=== PATIENT | female | born 2000 | race Caucasian/White ===

== ENCOUNTER 2024-03-06 06:49 | Day surgery (SDC) | payer MEDICAID, OTHER ==
[2024-03-06] MEDS ORDERED: hydrALAZINE 20 MG/ML VIAL SLOW IVP PRN (06:51)
[2024-03-06] MEDS ORDERED: Ondansetron PF 4 MG/2 ML Vial IVP PRN (06:51)
[2024-03-06] MEDS ORDERED: Famotidine/PF 20 mg/2ml Vial SLOW IVP PRN (06:51)
[2024-03-06] MEDS ORDERED: Bicitra 30 ML UDCUP PO PRN (06:51)
[2024-03-06] MEDS ORDERED: Promethazine HCl 25 MG/ML VIAL IM PRN (06:51)
[2024-03-06] MEDS ORDERED: Oxytocin 30 units/NS 500 ML 500 ML IV SCH (07:00)
[2024-03-06 07:32] VITALS: BMI 34.7
[2024-03-06] MEDS ORDERED: Terbutaline Sulfate 1 MG/ML VIAL SC SCH (07:40)
[2024-03-06] MEDS: Lactated Ringer's 1,000 ML IV SCH (07:55)
[2024-03-06] MEDS: Acetaminophen 500 MG TAB PO SCH (08:11)
== END 2024-03-06 09:55 | disposition home health service (06) ==
LOC: CSHSDC 06:49 → CSHLD 06:49 → UNDOADMOB 06:49 → INTOOBSV 06:51 → OBSVTOIN 06:51 → EDSTATUS 07:30 → UNDODISOB 09:55 → CSHSDC 09:55 → UNDODISIN 09:55
PROVIDERS: ATTEND Family Medicine
PROC: 10S0XZZ Reposition Products of Conception, External Approach (ICD-10-PCS; principal; 2024-03-06)
PROC: 10E0XZZ Delivery of Products of Conception, External Approach (ICD-10-PCS; principal; 2024-03-06)
DX: O32.1XX0 Maternal care for breech presentation, not applicable or unspecified (principal); Z79.899 Other long term (current) drug therapy; Z79.82 Long term (current) use of aspirin; Z3A.37 37 weeks gestation of pregnancy
CPT/HCPCS: 59412; 76815; 96360; J7120

== ENCOUNTER 2024-03-26 14:58 | Inpatient (IN) | payer OTHER ==
[2024-03-25 14:19] LABS: Hemoglobin 12.8 g/dL (12.0-15.5); Platelet Count 151 10x3/uL (150-450)
[2024-03-25 14:53] LABS: Syphilis Antibody Nonreactive (Nonreactive); Syphilis Antibody Index 0.06 S/CO (<1.00 Non-Reactive)
[2024-03-25 14:56] LABS: HBsAg Index 0.27 S/CO (0-0.99); HIV (1/2) Antibody/Antigen Non-Reactive (NonReactive); HIV 1/2 INDEX 0.15 S/CO (<1.00); Hep B Surf Ag Non-Reactive S/CO (NonReactive)
[2024-03-26] MEDS ORDERED: Bicitra 30 ML UDCUP PO PRN (15:36)
[2024-03-26] MEDS ORDERED: Methylergonovine 0.2 MG/ML VIAL IM PRN (15:36)
[2024-03-26] MEDS ORDERED: Tranexamic Acid 1,000 MG/10 ML VIAL IVP PRN (15:36)
[2024-03-26] MEDS ORDERED: Misoprostol 200 MCG TAB PR PRN (15:36)
[2024-03-26] MEDS ORDERED: Clindamycin/D5W 900 MG in Premix 1 BAG IVPB SCH (15:36)
[2024-03-26] MEDS ORDERED: Ondansetron PF 4 MG/2 ML Vial IVP PRN ×4 (15:36→21:17)
[2024-03-26] MEDS ORDERED: Carboprost 250 MCG/ML AMP IM PRN (15:36)
[2024-03-26] MEDS ORDERED: Diphenoxylate HCl/Atropine Tablet PO PRN (15:36)
[2024-03-26] MEDS ORDERED: Promethazine HCl 25 MG/ML VIAL IM PRN ×3 (15:36→21:17)
[2024-03-26] MEDS ORDERED: Lactated Ringer's 1,000 ML IV SCH (15:36)
[2024-03-26] MEDS ORDERED: hydrALAZINE 20 MG/ML VIAL SLOW IVP PRN ×2 (15:36→21:17)
[2024-03-26] MEDS ORDERED: Oxytocin 30 units/NS 500 ML 500 ML IV SCH (15:36)
[2024-03-26 15:38] VITALS: BMI 35.8
[2024-03-26] MEDS: Famotidine/PF 20 mg/2ml Vial SLOW IVP PRN (16:16)
[2024-03-26 16:58] LABS: Amphetamine Not Detected (NotDetected); Barbiturates Screen Not Detected (NotDetected); Benzodiazepine Screen Not Detected (NotDetected); Cocaine Metabolite Screen Not Detected (NotDetected); Methadone Not Detected (NotDetected); Methamphetamine Not Detected (NotDetected); Opiate Screen Not Detected (NotDetected); Oxycodone Screen Not Detected (NotDetected); Phencyclidine (PCP) Not Detected (NotDetected); THC/Cannabinoid Screen Detected (NotDetected); Tricyclic Screen Not Detected (NotDetected)
[2024-03-26] MEDS ORDERED: fentaNYL 50 mcg/mL 1 mL Vial SLOW IVP PRN (18:32)
[2024-03-26] MEDS ORDERED: diphenhydrAMINE 50 MG/ML VIAL IVP PRN (18:32)
[2024-03-26] MEDS ORDERED: Naloxone HCl 0.4 mg/ml Vial IVP PRN ×2 (18:32)
[2024-03-26] MEDS ORDERED: Naloxone HCl 0.4 mg/ml Vial IV PRN (18:32)
[2024-03-26] MEDS ORDERED: Meperidine HCl/PF 25 MG (1 mL) VIAL SLOW IVP PRN (18:32)
[2024-03-26] MEDS ORDERED: Moisturizing Cream (Eucerin) 113 GM JAR TOP PRN (18:32)
[2024-03-26] MEDS ORDERED: Ketorolac Tromethamine 30 MG (1 mL) VIAL IVP SCH ×2 (18:45)
[2024-03-26] MEDS ORDERED: Communication Order-Pharmacy FS SCH (18:45)
[2024-03-26] MEDS ORDERED: diphenhydrAMINE 25 MG CAP PO PRN (21:17)
[2024-03-26] MEDS ORDERED: Bisacodyl 10 MG SUPP PR PRN (21:17)
[2024-03-26] MEDS ORDERED: Lanolin Ointment 7 GM TUBE TOP PRN (21:17)
[2024-03-26] MEDS: Gentamicin Sulfate 80 MG in Premix 1 BAG IVPB SCH (21:43)
[2024-03-26] MEDS: Morphine PF 10 MG/10 ML VIAL ONE (21:44)
[2024-03-26] MEDS: Dexmedetomidine 200 MCG/2 ML VIAL ONE (21:44)
[2024-03-26] MEDS: Boostrix 0.5 ML (Tdap) VIAL (>/=7 yrs of age) IM ONE (21:44)
[2024-03-26] MEDS: ePHEDrine Sulfate 50 MG/10 ML VIAL ONE (21:44)
[2024-03-26] MEDS: Oxytocin 10 UNITS/ML VIAL ONE (21:44)
[2024-03-26] MEDS: Promethazine HCl 25 MG/ML VIAL ONE (21:44)
[2024-03-26] MEDS: PHENYLEPHRINE-NS 100 MCG/ML 10 ML SYRINGE ONE ×3 (21:44)
[2024-03-26] MEDS: Docusate 100 MG CAP PO SCH (21:44)
[2024-03-26] MEDS: Ferrous Sulfate 325 MG TAB PO SCH (21:45)
[2024-03-27] MEDS: Ketorolac Tromethamine 30 MG (1 mL) VIAL IVP SCH (00:05)
[2024-03-27 04:31] LABS: Hematocrit 33.8 % (34.9-44.5); Hemoglobin 11.3 g/dL (12.0-15.5); Mean Corpuscular HGB CONC 33.4 g/dL (32.0-36.0); Mean Corpuscular Hemoglobin 29.4 pg (27.0-33.0); RBC Distribution Width 15.3 % (11.5-14.5); Red Blood Cell (RBC) Count 3.84 10x6/uL (3.90-5.03); White Blood Cell (WBC) Count 17.2 10x3/uL (3.5-10.5)
[2024-03-27 04:41] LABS: Platelet Count 132 10x3/uL (150-450)
[2024-03-27] MEDS ORDERED: Meperidine HCl/PF 25 MG (1 mL) VIAL IM PRN (06:45)
[2024-03-27] MEDS ORDERED: HYDROcodone/Acetaminophen 5/325 mg Tablet PO PRN (06:45)
[2024-03-27] MEDS: Ferrous Sulfate 325 MG TAB PO SCH (08:06)
[2024-03-27] MEDS: Prenatal Vitamin 1 TAB PO SCH (08:08)
[2024-03-27] MEDS: Simethicone Chewable 80 MG TAB PO PRN (08:08)
[2024-03-27] MEDS: Docusate 100 MG CAP PO SCH (08:08)
[2024-03-27] MEDS: HYDROcodone/Acetaminophen 5/325 mg Tablet PO PRN (08:08)
[2024-03-27] MEDS: Ibuprofen 800 MG TAB PO SCH (21:13)
[2024-03-29 08:11] VITALS: BP 120/73; TEMP 98.2
== END 2024-03-29 16:45 | disposition home or self-care (01) | DRG 787 ==
LOC: CSHLD 14:58 → CSHPP 21:00
PROVIDERS: ADMIT Family Medicine; ATTEND Family Medicine
PROC: 10D00Z1 Extraction of Products of Conception, Low, Open Approach (ICD-10-PCS; principal; 2024-03-26)
DX: O32.1XX0 Maternal care for breech presentation, not applicable or unspecified (principal); O99.324 Drug use complicating childbirth; Z3A.39 39 weeks gestation of pregnancy; Z37.0 Single live birth; F12.90 Cannabis use, unspecified, uncomplicated; Z3A.01 Less than 8 weeks gestation of pregnancy; Z79.82 Long term (current) use of aspirin; Z88.0 Allergy status to penicillin
CPT/HCPCS: 36415; 51702; 80306; 85014; 85018; 85027; 85049; 86780; 86850; 86900; 86901; 87340; 87389; C1889; J1885; J2274; J2550; J2590; J3490